=== PATIENT | male | born 1945 | race Caucasian/White ===

== ENCOUNTER 2019-06-16 10:56 | Outpatient (CLI) | payer MEDICARE ==
--- NOTE | 2019-06-16 11:19 | RAD ---
EXAM: 3 views of the right wrist HISTORY: Ulnar styloid process fracture COMPARISON: None FINDINGS: 3 views of the right wrist shows no evidence of acute fracture or dislocation. No soft tiss ue swelling is seen. Moderate joint space narrowing is seen in the radiocarpal joint and degenerative changes are also seen in the distal radial ulnar joint. Joint space narrowing and osteop hyte formation is seen in the first CMC joint. IMPRESSION: Moderate right wrist osteoarthritis.
--- NOTE | 2019-06-16 11:20 | RAD ---
EXAM: 3 views of the left wrist HISTORY: Wrist pain COMPARISON: None FINDINGS: 3 views of the left wrist shows no evidence of acute fracture or dislocation. No soft tissu e swelling is seen. Severe joint space narrowing and osteophyte formation is seen in the radiocarpal joint. Moderate degenerative changes are seen in the first CMC joint and distal radial ul aviva joint. IMPRESSION: Severe left wrist osteoarthritis
== END 2019-06-16 10:57 | disposition home or self-care (01) ==
LOC: BICRAD 10:56
PROVIDERS: ATTEND Specialist
DX: S52.612A Displaced fracture of left ulna styloid process, initial encounter for closed fracture (principal); S52.611A Displaced fracture of right ulna styloid process, initial encounter for closed fracture; M19.032 Primary osteoarthritis, left wrist; M19.031 Primary osteoarthritis, right wrist